=== PATIENT | female | born 1965 | race Two or more races ===

== ENCOUNTER 2017-08-03 08:50 | Emergency (ER) | payer SELFPAY ==
[~2017-08-03] VITALS: Ht 149.9 cm; Wt 40.8 kg
--- NOTE | 2017-08-03 10:19 | PHYS DOC ---
Past Medical History Past Medical History: Anxiety, Asthma, Depression, Hypertension Additional Past Medical Histor: HERNIA Past Surgical History: Cholecystectomy Alcohol Use: None Drug Use: Marijuana Adult General Chief Complaint Chief Complaint: COUGH HPI HPI Patient is a 52 year old female presents to the emergency department with a 11 day hx of cough and congestion. Patient states she also has lower abdominal pain on the right. Fever, chills denies nausea or vomiting. Patient states she arrived to the from [facility] 11 days ago. Patient states she has a history of asthma and has been taking prednisone. Patient states she is here visiting her son who is in the hospital for pneumonia. Review of Systems Review of Systems Constitutional: Denies fever or chills [] Eyes: Denies change in visual acuity, redness, or eye pain [] HENT: Denies nasal congestion or sore throat [] Respiratory: nonproductive cough denies shortness of breath [] Cardiovascular: No additional information not addressed in HPI [] GI: abdominal pain, denies nausea, vomiting, bloody stools or diarrhea [] : Denies dysuria or hematuria [] Musculoskeletal: Denies back pain or joint pain [] Integument: Denies rash or skin lesions [] Neurologic: Denies headache, focal weakness or sensory changes [] Endocrine: Denies polyuria or polydipsia [] All other systems were reviewed and found to be within normal limits, except as documented in this note. Current Medications Current Medications Current Medications Medications (Trade) Dose Ordered Sig/Nicole Start Time Stop Time Status Last Admin Dose Admin Info (Do NOT chart on this entry -- for MONITORING) 1 each PRN DAILY PRN 08/03/17 11:00 08/05/17 10:59 Iohexol (Omnipaque 300 Mg/ml) 100 ml 1X ONCE 08/03/17 10:45 08/03/17 10:59 DC 08/03/17 11:15 100 ML Allergies Allergies Allergies Coded Allergies Type Severity Reaction Last Updated Verified No Known Drug Allergies 08/03/17 No Physical Exam Physical Exam Constitutional: Well developed, well nourished, no acute distress, non-toxic appearance. [] HENT: Normocephalic, atraumatic, bilateral external ears normal, oropharynx moist, no oral exudates, nose normal. [] Eyes: PERRLA, EOMI, conjunctiva normal, no discharge. [] Neck: Normal range of motion, no tenderness, supple, no stridor. [] Cardiovascular:Heart rate regular rhythm, no murmur [] Lungs & Thorax: Bilateral breath sounds clear to auscultation [] Abdomen: Bowel sounds hypoactive, soft, right lower quadrant abdominal tenderness, positive McBurney sign. No masses, no pulsatile masses. No guarding noted, no rebound tenderness] Skin: Warm, dry, no erythema, no rash. [] Back: No tenderness Extremities: No tenderness, no cyanosis, no clubbing, ROM intact, no edema. [] Neurologic: Alert and oriented X 3, normal motor function, normal sensory function, no focal deficits noted. [] Psychologic: Affect normal, judgement normal, mood normal. [] Current Patient Data Vital Signs Vital Signs Date Time Temp Pulse Resp B/P (MAP) Pulse Ox O2 Delivery O2 Flow Rate FiO2 08/03/17 11:01 74 101/56 (71) 98 Room Air 08/03/17 09:00 98.0 18 98.0 Lab Values Laboratory Tests Test 08/03/17 10:00 08/03/17 10:20 Influenza Type A Antigen Negative (NEGATIVE) Influenza Type B Antigen Negative (NEGATIVE) White Blood Count 5.9 x10^3/uL (4.0-11.0) Red Blood Count 4.65 x10^6/uL (3.50-5.40) Hemoglobin 14.2 g/dL (12.0-15.5) Hematocrit 42.3 % (36.0-47.0) Mean Corpuscular Volume 91 fL (79-100) Mean Corpuscular Hemoglobin 31 pg (25-35) Mean Corpuscular Hemoglobin Concent 34 g/dL (31-37) Red Cell Distribution Width 13.5 % (11.5-14.5) Platelet Count 287 x10^3/uL (140-400) Neutrophils (%) (Auto) 55 % (31-73) Lymphocytes (%) (Auto) 28 % (24-48) Monocytes (%) (Auto) 16 % (0-9) H Eosinophils (%) (Auto) 1 % (0-3) Basophils (%) (Auto) 1 % (0-3) Neutrophils # (Auto) 3.2 x10^3uL (1.8-7.7) Lymphocytes # (Auto) 1.7 x10^3/uL (1.0-4.8) Monocytes # (Auto) 0.9 x10^3/uL (0.0-1.1) Eosinophils # (Auto) 0.1 x10^3/uL (0.0-0.7) Basophils # (Auto) 0.1 x10^3/uL (0.0-0.2) Sodium Level 141 mmol/L (136-145) Potassium Level 3.9 mmol/L (3.5-5.1) Chloride Level 103 mmol/L (98-107) Carbon Dioxide Level 33 mmol/L (21-32) H Anion Gap 5 (6-14) L Blood Urea Nitrogen 15 mg/dL (7-20) Creatinine 0.8 mg/dL (0.6-1.0) Estimated GFR (Cockcroft-Gault) 75.9 BUN/Creatinine Ratio 19 (6-20) Glucose Level 89 mg/dL (70-99) Calcium Level 9.4 mg/dL (8.5-10.1) Total Bilirubin 0.3 mg/dL (0.2-1.0) Aspartate Amino Transferase (AST) 23 U/L (15-37) Alanine Aminotransferase (ALT) 35 U/L (14-59) Alkaline Phosphatase 68 U/L (46-116) Total Protein 7.6 g/dL (6.4-8.2) Albumin 3.9 g/dL (3.4-5.0) Albumin/Globulin Ratio 1.1 (1.0-1.7) Laboratory Tests 08/03/17 10:20 Laboratory Tests 08/03/17 10:20 EKG EKG [] Radiology/Procedures Radiology/Procedures [][facility] [address] [place] [address] IMAGING REPORT Signed PATIENT: ROSARIO ARMIJO ACCOUNT: [id number] : 1965 LOCATION: ER AGE: 52 SEX: F EXAM STATUS: REG ER ORD. PHYSICIAN: FILIBERTO COOPER APRN REASON: right lower quadrant abdominal pain PROCEDURE: CT ABD PELV W/ IV CONTRST ONLY PQRS Compliance Statement: One or more of the following individualized dose reduction techniques were utilized for this examination: 1. Automated exposure control 2. Adjustment of the mA and/or kV according to patient size 3. Use of iterative reconstruction technique CT ABD PELV W/ IV CONTRST ONLY Clinical Indication: right lower quadrant abdominal pain, nausea Comparison: None. Technique: Helical CT imaging of the abdomen and pelvis is performed after 75 cc Omnipaque 300 IV contrast. Oral contrast not given. Findings: There is a groundglass and nodular opacity in the right lower lobe that is probably infectious/inflammatory, images 4 and 8. There is right lower lobe peribronchial thickening as seen on coronal image 23. There is minimal dependent atelectasis in the left lower lobe. Cardiac size normal. Cholecystectomy. Liver, spleen, pancreas, adrenal glands, and abdominal aorta are normal. There is a 2 mm nonobstructing calculus in the lower pole the left kidney. There may be a second tiny left renal calculus. Kidneys enhance symmetrically, no hydronephrosis. Evaluation of bowel may be limited without oral contrast. Stomach unremarkable. No dilated small bowel. There is stool scattered throughout the colon. No colon wall thickening is identified. Appendix not definitely identified. No secondary signs of appendicitis. No abdominal adenopathy or free fluid. The urinary bladder is normal. There is left adnexal mass measuring 3.8 cm. There is right adnexal mass that is slightly enhancing or increased in density measuring 4 cm. There are prominent periuterine vessels on the left. No pelvic free fluid is seen. No acute bone abnormality. IMPRESSION: 1. Mild bronchopneumonia in the right lower lobe. 2. Appendix not definitely identified. No secondary signs of appendicitis. 3. There are bilateral adnexal masses. Uterus or ovarian origin is possible. Recommend further evaluation with pelvic ultrasound. 4. Tiny nonobstructing left renal calculi. DICTATED and SIGNED BY: NERI MAHAN MD DATE: 08/03/17 1144 CC: FILIBERTO COOPER APRN; NO PCP ~ [facility] [address] [place], [place] [id number] IMAGING REPORT Signed PATIENT: ROSARIO ARMIJO ACCOUNT: [id number] : 1965 LOCATION: ER AGE: 52 SEX: F EXAM STATUS: REG ER ORD. PHYSICIAN: FILIBERTO COOPER APRN REASON: cough and congestion PROCEDURE: CHEST PA & LATERAL PA AND LATERAL CHEST RADIOGRAPH Clinical Indication: cough and congestion x5 days. Comparison: None. Findings: The cardiomediastinal silhouette is normal. Pulmonary vasculature is normal. The lungs are clear. No pleural effusion or pneumothorax is seen. Minimal right convexity thoracic scoliosis. There is a rudimentary disc space of T8/T9 which may be due to segmentation anomaly. There is no acute bone abnormality. IMPRESSION: No acute cardiopulmonary process. DICTATED and SIGNED BY: NERI MAHAN MD DATE: 08/03/17 1035 CC: FILIBERTO COOPER APRN; NO PCP ~ Course & Med Decision Making Course & Med Decision Making Pertinent Labs and Imaging studies reviewed. (See chart for details) Chest x-ray was negative for any abnormalities. CT scan of abdominal/pelvis area identified a bronchial pneumonia . Patient will be placed on antibiotics with her primary inhaler. Recommended plenty of fluids Tylenol or ibuprofen for fever chills or generalized body aches and discomfort. Patient will be discharged home in stable condition. I've spoken with the patient and/or caregivers. I've explained the patient's condition, diagnosis and treatment plan based on information available to me at this time. I've answered the patient's and/or caregivers questions and addressed any concerns. The patient and/or caregivers have a good understanding the patient's diagnosis, condition and treatment plan as can be expected at this point. Vital signs have been stabilized. The patient's condition is stable for discharge from the emergency department. The patient will pursue further outpatient evaluation with her primary care provider or other designated consulting physician as outlined in the discharge instructions. Patient and/or caregivers are agreeable to this plan of care and follow-up instructions have been explained in detail. The patient and/or caregivers have received these instructions in written format and expressed understanding of these discharge instructions. The patient and her caregivers are aware that if any significant change in condition or worsening of symptoms should prompt him to immediately return to this of the closest emergency department. If an emergent department is not readily available I would encourage him to call 911. [] Dragon Disclaimer Dragon Disclaimer This electronic medical record was generated, in whole or in part, using a voice recognition dictation system. Departure Departure Impression: Primary Impression: Bronchopneumonia Disposition: 01 HOME, SELF-CARE Condition: STABLE Referrals: NO PCP (PCP) Patient Instructions: Pneumonia, Adult, [id number] Additional Instructions: Activity as tolerated Medication as prescribed Tylenol or Ibuprofen for pain and discomfort Drink plenty of fluids Followup with primary care provider in 3-5 days Return to emergency department as needed for signs and symptoms that become worse. Scripts Inhaler, Assist Devices (Compact Space Chamber) 1 Each Spacer EACH MC, #1 Prov: FILIBERTO COOPER APRN 08/03/17 Albuterol Sulfate (PROAIR HFA INHALER) 8.5 Gm Hfa.aer.ad 1 PUFF INH PRN Q6HRS Y for SHORTNESS OF BREATH, #1 INHALER 0 Refills Prov: FILIBERTO COOPER APRN 08/03/17 Azithromycin (ZITHROMAX) 250 Mg Tablet 250 MG PO DAILY for ANTI-BIOTIC, #6 TAB 0 Refills Take 2 tablets today then 1 tablet daily until gone Prov: FILIBERTO COOPER APRN 08/03/17 FILIBERTO COOPER APRN Aug 03, 2017 10:19
[2017-08-03 10:29] LABS: OBC FLU VALID
[2017-08-03 10:33] LABS: BASO # 0.1 x10^3/uL (0.0-0.2); BASO % 1 % (0-3); EOS % 1 % (0-3); HEMATOCRIT 42.3 % (36.0-47.0); HEMOGLOBIN 14.2 g/dL (12.0-15.5); LYMPH # 1.7 x10^3/uL (1.0-4.8); LYMPH % 28 % (24-48); MEAN CORPUSCULAR HEMOGLOBIN 31 pg (25-35); MEAN CORPUSCULAR HGB CONC 34 g/dL (31-37); MEAN CORPUSCULAR VOLUME 91 fL (79-100); MONO % 16 % (0-9); NEUT % 55 % (31-73); PLATELET COUNT 287 x10^3/uL (140-400); RED BLOOD COUNT 4.65 x10^6/uL (3.50-5.40); RED CELL DISTRIBUTION WIDTH 13.5 % (11.5-14.5); WHITE BLOOD COUNT 5.9 x10^3/uL (4.0-11.0)
--- NOTE | 2017-08-03 10:41 | RAD ---
PA AND LATERAL CHEST RADIOGRAPH Clinical Indication: cough and congestion x5 days. Comparison: None. Findings: The cardiomediastinal silhouette is normal. Pulmonary vasculature is normal. The lungs are clear. No pleural effusion or pneumothorax is seen. Minimal right convexity thoracic scoliosis. There is a rudimentary disc space of T8/T9 which may be due to segmentation anomaly. There is no acute bone abnormality. IMPRESSION: No acute cardiopulmonary process.
[2017-08-03 10:44] LABS: CALCIUM 9.4 mg/dL (8.5-10.1); CREATININE 0.8 mg/dL (0.6-1.0); GFR 75.9; POTASSIUM 3.9 mmol/L (3.5-5.1)
[2017-08-03] MEDS ORDERED: IOHEXOL 300 MG/ML 100ML VIAL. IV ONE (10:45)
[2017-08-03 10:50] LABS: ALBUMIN 3.9 g/dL (3.4-5.0); ALBUMIN/GLOBULIN RATIO 1.1 (1.0-1.7); TOTAL BILIRUBIN 0.3 mg/dL (0.2-1.0); TOTAL PROTEIN 7.6 g/dL (6.4-8.2)
[2017-08-03] MEDS ORDERED: CONTRAST GIVEN MC PRN (11:00)
[2017-08-03 11:01] VITALS: BP 101/56
--- NOTE | 2017-08-03 12:02 | RAD ---
PQRS Compliance Statement: One or more of the following individualized dose reduction techniques were utilized for this examination: 1. Automated exposure control 2. Adjustment of the mA and/or kV according to patient size 3. Use of iterative reconstruction technique CT ABD PELV W/ IV CONTRST ONLY Clinical Indication: right lower quadrant abdominal pain, nausea Comparison: None. Technique: Helical CT imaging of the abdomen and pelvis is performed after 75 cc Omnipaque 300 IV contrast. Oral contrast not given. Findings: There is a groundglass and nodular opacity in the right lower lobe that is probably infectious/inflammatory, images 4 and 8. There is right lower lobe peribronchial thickening as seen on coronal image 23. There is minimal dependent atelectasis in the left lower lobe. Cardiac size normal. Cholecystectomy. Liver, spleen, pancreas, adrenal glands, and abdominal aorta are normal. There is a 2 mm nonobstructing calculus in the lower pole the left kidney. There may be a second tiny left renal calculus. Kidneys enhance symmetrically, no hydronephrosis. Evaluation of bowel may be limited without oral contrast. Stomach unremarkable. No dilated small bowel. There is stool scattered throughout the colon. No colon wall thickening is identified. Appendix not definitely identified. No secondary signs of appendicitis. No abdominal adenopathy or free fluid. The urinary bladder is normal. There is left adnexal mass measuring 3.8 cm. There is right adnexal mass that is slightly enhancing or increased in density measuring 4 cm. There are prominent periuterine vessels on the left. No pelvic free fluid is seen. No acute bone abnormality. IMPRESSION: 1. Mild bronchopneumonia in the right lower lobe. 2. Appendix not definitely identified. No secondary signs of appendicitis. 3. There are bilateral adnexal masses. Uterus or ovarian origin is possible. Recommend further evaluation with pelvic ultrasound. 4. Tiny nonobstructing left renal calculi.
[2017-08-03] MEDS ORDERED: AZIT250T PO (12:27)
[2017-08-03] MEDS ORDERED: PROAIR HFA8.5 GM INH (12:27)
[2017-08-03] MEDS ORDERED: INHA1SPA94 MC (12:27)
[2017-08-03] MEDS ORDERED: TRAM-48 PO (17:43)
[2017-08-03] MEDS ORDERED: LORA-434 PO (17:43)
[2017-08-03] MEDS ORDERED: ALPR2TAB2 PO (17:43)
[2017-08-03] MEDS ORDERED: HYDR25CA PO (17:43)
== END 2017-08-03 12:36 | disposition home or self-care (01) ==
LOC: ER 08:50
DX: J18.0 Bronchopneumonia, unspecified organism (principal); J45.909 Unspecified asthma, uncomplicated; I10 Essential (primary) hypertension; Z90.49 Acquired absence of other specified parts of digestive tract; Z98.890 Other specified postprocedural states
CPT/HCPCS: 36415; 71020; 74177; 80053; 81025; 85025; 87804; 99285; Q9967

== ENCOUNTER 2017-08-03 15:00 | Emergency (ER) | payer SELFPAY ==
[~2017-08-03] VITALS: Ht 149.9 cm; Wt 40.8 kg
[~2017-08-03 15:00] MED LIST: AZIT250T PO; INHA1SPA94 MC; PROAIR HFA8.5 GM INH
[2017-08-03 15:10] VITALS: BP 129/75
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
[2017-08-03] MEDS ORDERED: LORazepam 1 MG TABLET PO ONE (16:45)
[2017-08-03] MEDS ORDERED: LORA-434 PO (17:43)
[2017-08-03] MEDS ORDERED: ALPR2TAB2 PO (17:43)
[2017-08-03] MEDS ORDERED: HYDR25CA PO (17:43)
[2017-08-03] MEDS ORDERED: TRAM-48 PO (17:43)
== END 2017-08-03 18:17 | disposition home or self-care (01) ==
LOC: ER 15:00
DX: Z00.8 Encounter for other general examination (principal); J45.909 Unspecified asthma, uncomplicated; I10 Essential (primary) hypertension; Z90.49 Acquired absence of other specified parts of digestive tract; Z98.890 Other specified postprocedural states
CPT/HCPCS: 99284